=== PATIENT | female | born 2000 | race Caucasian/White ===

== ENCOUNTER 2020-10-17 21:36 | Emergency (ER) | payer OTHER ==
[~2020-10-17 21:36] MED LIST: LODINE CAP 300300 MG PO; TAMIFLU75 MG PO; VENTOLIN HFA 66.7 GM INH; ZOFRAN ODT 4 MG4 MG PO
[2020-10-18 04:29] LABS: HEMOGLOBIN 10.3 gm/dl (12.3-15.3); RED BLOOD COUNT 5.02 M/UL (4.00-5.10); WHITE BLOOD COUNT 7.1 K/UL (4.5-11.0)
[2020-10-18 04:52] LABS: BUN/CREATININE RATIO 13 (0-10)
== END 2020-10-18 03:26 | disposition home or self-care (01) ==
LOC: ER1 21:36
PROVIDERS: Family Medicine
DX: D64.9 Anemia, unspecified (principal); E87.6 Hypokalemia; F17.210 Nicotine dependence, cigarettes, uncomplicated; Z79.899 Other long term (current) drug therapy; Z88.6 Allergy status to analgesic agent
CPT/HCPCS: 80053; 81001; 83735; 84439; 84443; 84703; 85025; 86850; 86900; 86901; 93005; 99284